=== PATIENT | female | born 1995 | race Two or more races ===

== ENCOUNTER 2019-01-29 08:40 | Observation (INO) | payer MEDICAID ==
[~2019-01-29] VITALS: Ht 157.5 cm; Wt 112.5 kg
== END 2019-01-29 10:55 | disposition home or self-care (01) | DRG 566 ==
LOC: LDRP 08:40
PROVIDERS: ADMIT Obstetrics & Gynecology; ATTEND Obstetrics & Gynecology
DX: O41.03X0 Oligohydramnios, third trimester, not applicable or unspecified (principal); Z3A.36 36 weeks gestation of pregnancy
CPT/HCPCS: 59025; 76805; 81002; G0378

== ENCOUNTER 2019-02-01 18:40 | Observation (INO) | payer MEDICAID | END 2019-02-01 20:00 | disposition home or self-care (01) | DRG 566 | LOC: LDRP 18:40 | PROVIDERS: ADMIT Specialist; ATTEND Specialist | DX: O41.03X0 Oligohydramnios, third trimester, not applicable or unspecified (principal); O24.113 Pre-existing type 2 diabetes mellitus, in pregnancy, third trimester; Z3A.36 36 weeks gestation of pregnancy | CPT/HCPCS: 59025; 76818; 81002; G0378 ==

== ENCOUNTER 2019-02-08 18:48 | Observation (INO) | payer MEDICAID ==
[2019-02-08 20:22] LABS: Urine Bacteria NONE SEEN /hpf (None Seen); Urine Blood 2+ /uL (Negative); Urine Mucus FEW (None Seen); Urine Specific Gravity 1.026 (1.001-1.035); Urine Sperm PRESENT /hpf (None Seen); Urine WBC 69 /hpf (0 - 5)
== END 2019-02-08 19:55 | disposition home or self-care (01) | DRG 566 ==
LOC: LDRP 18:48
PROVIDERS: ADMIT Obstetrics & Gynecology; ATTEND Obstetrics & Gynecology
DX: O00.01 Abdominal pregnancy with intrauterine pregnancy (principal); Z3A.37 37 weeks gestation of pregnancy
CPT/HCPCS: 59025; 76818; 81001; 81002; G0378

== ENCOUNTER 2019-02-15 18:54 | Observation (INO) | payer MEDICAID ==
[2019-02-15] MEDS ORDERED: PREN-129 OR (19:51)
== END 2019-02-15 21:03 | disposition home or self-care (01) | DRG 566 ==
LOC: LDRP 18:54
PROVIDERS: ADMIT Obstetrics & Gynecology; ATTEND Obstetrics & Gynecology
DX: O00.01 Abdominal pregnancy with intrauterine pregnancy (principal); O24.113 Pre-existing type 2 diabetes mellitus, in pregnancy, third trimester; O41.03X0 Oligohydramnios, third trimester, not applicable or unspecified; Z3A.38 38 weeks gestation of pregnancy
CPT/HCPCS: 59025; 76818; 81002; G0378

== ENCOUNTER 2019-02-16 09:00 | Observation (INO) | payer MEDICAID ==
[~2019-02-16 09:00] MED LIST: PREN-129 OR
[2019-02-16 10:42] LABS: Urine Bacteria FEW /hpf (None Seen); Urine Blood TRACE /uL (Negative); Urine Mucus FEW (None Seen); Urine WBC 26 /hpf (0 - 5)
[2019-02-16 11:04] LABS: Basophils # (auto) 0.1 uL; Basophils % (auto) 0.6 % (0.0-2.0); Eosinophils # (auto) 0.1 uL; Eosinophils % (auto) 1.5 % (0.0-7.0); Hematocrit 33.5 % (36.0-46.0); Hemoglobin 10.9 g/dL (12.2-16.2); Lymphocytes # (auto) 1.9 uL; Lymphocytes % (auto) 20.5 % (10.0-50.0); Mean Corpuscular Hemoglobin 28.9 pg (28.0-32.0); Mean Corpuscular Hgb Conc. 32.4 g/dL (32.0-36.0); Mean Corpuscular Volume 89.2 fL (80.0-100.0); Monocytes # (auto) 0.6 uL; Monocytes % (auto) 6.1 % (0.0-12.0); Neutrophils # (auto) 6.7 uL; Neutrophils % (auto) 71.3 % (37.0-80.0); Nucleated Red Blood Cells % 0.1 %; Platelet Count (auto) 170 10^3/uL (140-450); Red Blood Cells 3.76 10^6/uL (4.0-5.20); Red Cell Distribution Width 14.1 % (11.8-14.3); White Blood Cell 9.4 10^3/uL (4.4-10.8)
[2019-02-16 11:25] LABS: INR < 0.93 (0.9-1.15); Partial Thromboplastin Time 26.9 sec (23.64-32.05)
[2019-02-16 11:44] LABS: Albumin 2.5 g/dL (3.4-5.0)
[2019-02-16 11:47] LABS: BUN/Creatinine Ratio 14.3; Bilirubin, Total 0.2 mg/dL (0.2-1.0); Total Protein 6.8 g/dL (6.4-8.2)
== END 2019-02-16 12:08 | disposition home or self-care (01) | DRG 566 ==
LOC: LDRP 09:00
PROVIDERS: ADMIT Specialist; ATTEND Specialist
DX: O00.01 Abdominal pregnancy with intrauterine pregnancy (principal); O24.113 Pre-existing type 2 diabetes mellitus, in pregnancy, third trimester; O26.893 Other specified pregnancy related conditions, third trimester; N89.8 Other specified noninflammatory disorders of vagina; Z3A.38 38 weeks gestation of pregnancy
CPT/HCPCS: 36415; 59025; 76818; 80053; 81001; 81002; 84550; 85025; 85362; 85379; 85610; 85730; G0378

== ENCOUNTER 2019-02-16 23:35 | Observation (INO) | payer MEDICAID ==
[~2019-02-16] VITALS: Ht 157.5 cm; Wt 108.9 kg
== END 2019-02-17 00:27 | disposition home or self-care (01) | DRG 566 ==
LOC: LDRP 23:35
PROVIDERS: ADMIT Specialist; ATTEND Specialist
DX: O00.01 Abdominal pregnancy with intrauterine pregnancy (principal); O24.113 Pre-existing type 2 diabetes mellitus, in pregnancy, third trimester; O26.893 Other specified pregnancy related conditions, third trimester; N89.8 Other specified noninflammatory disorders of vagina; O26.853 Spotting complicating pregnancy, third trimester; Z3A.39 39 weeks gestation of pregnancy
CPT/HCPCS: 59025; 81002; G0378

== ENCOUNTER 2019-02-17 10:05 | Observation (INO) | payer MEDICAID ==
[2019-02-17] MEDS ORDERED: LACTATED RINGER'S 1,000 ML IV ONE (12:15)
== END 2019-02-17 13:26 | disposition home or self-care (01) | DRG 566 ==
LOC: LDRP 10:05
PROVIDERS: ADMIT Obstetrics & Gynecology; ATTEND Obstetrics & Gynecology
DX: O41.03X0 Oligohydramnios, third trimester, not applicable or unspecified (principal); Z3A.39 39 weeks gestation of pregnancy
CPT/HCPCS: 59025; 76818; 81002; G0378; 96361; 96366

== ENCOUNTER 2019-02-19 00:17 | Observation (INO) | payer MEDICAID | END 2019-02-19 03:00 | disposition home or self-care (01) | DRG 566 | LOC: LDRP 00:17 | PROVIDERS: ADMIT Obstetrics & Gynecology; ATTEND Obstetrics & Gynecology | DX: O00.01 Abdominal pregnancy with intrauterine pregnancy (principal); O26.893 Other specified pregnancy related conditions, third trimester; N89.8 Other specified noninflammatory disorders of vagina; O62.9 Abnormality of forces of labor, unspecified; Z3A.39 39 weeks gestation of pregnancy | CPT/HCPCS: 59025; 76818; 81002; G0378 ==

== ENCOUNTER 2022-09-03 11:21 | Observation (INO) | payer MEDICAID ==
[~2022-09-03] VITALS: Ht 160 cm; Wt 121.1 kg
[2022-09-03 12:09] LABS: Basophils # (auto) 0 10 ^3/uL (0-0.2); Basophils % (auto) 0.3 % (0.0-2.0); Eosinophils # (auto) 0 10 ^3/uL (0-0.8); Eosinophils % (auto) 0.6 % (0.0-7.0); Hematocrit 32.3 % (36.0-46.0); Hemoglobin 10.5 g/dL (12.2-16.2); Lymphocytes # (auto) 1.4 10 ^3/uL (0.4-5.4); Lymphocytes % (auto) 17.9 % (10.0-50.0); Mean Corpuscular Hgb Conc. 32.4 g/dL (32.0-36.0); Mean Corpuscular Volume 89.3 fL (80.0-100.0); Monocytes # (auto) 0.4 10 ^3/uL (0-1.3); Monocytes % (auto) 4.7 % (0.0-12.0); Neutrophils # (auto) 5.8 10 ^3/uL (1.6-8.6); Neutrophils % (auto) 76.5 % (37.0-80.0); Red Blood Cells 3.61 10^6/uL (4.0-5.20); Red Cell Distribution Width 13.5 % (11.8-14.3); White Blood Cell 7.6 10^3/uL (4.4-10.8)
[2022-09-03 12:28] LABS: INR 0.93 (0.9-1.15)
[2022-09-03] MEDS ORDERED: FERR-7 PO (12:45)
[2022-09-03 13:28] LABS: Potassium 3.6 mmol/L (3.5-5.1)
[2022-09-03 13:32] LABS: Albumin 2.5 g/dL (3.4-5.0); BUN/Creatinine Ratio 14.6; Calcium 8.9 mg/dL (8.5-10.1)
[2022-09-03 13:34] LABS: Bilirubin, Total 0.2 mg/dL (0.2-1.0); Total Protein 6.7 g/dL (6.4-8.2)
[2022-09-03 14:47] LABS: Urine Bacteria FEW /hpf (None Seen); Urine Blood Negative /uL (Negative); Urine Mucus FEW (None Seen); Urine Specific Gravity 1.025 (1.001-1.035); Urine WBC 1 /hpf (0 - 5)
[2022-09-04 18:25] LABS: Protein, Urine 22.7 mg/dL (0.0-11.9)
== END 2022-09-03 14:13 | disposition home or self-care (01) ==
LOC: LDRP 11:21 → UNDOADMOB 11:21 → LDRP 11:27 → UNDODISOB 14:13
PROVIDERS: ADMIT Obstetrics & Gynecology; ATTEND Obstetrics & Gynecology
DX: O62.9 Abnormality of forces of labor, unspecified (principal); Z3A.37 37 weeks gestation of pregnancy
CPT/HCPCS: 36415; 59025; 80053; 81001; 81002; 82570; 84156; 84550; 85025; 85362; 85379; 85610; 85730; 94760; G0378

== ENCOUNTER 2022-09-05 08:04 | Observation (INO) | payer MEDICAID ==
[~2022-09-05 08:04] MED LIST changes: +FERR-7 PO
[2022-09-05 09:41] LABS: Protein, Urine 19.5 mg/dL (0.0-11.9)
[2022-09-05 09:44] LABS: Protein, Urine 27.9 mg/dL (0.0-11.9)
[2022-09-05 10:11] LABS: 24 Hr. Total Protein, Urine 165.7 mg/24 Hr (<149.1)
== END 2022-09-05 11:34 | disposition home or self-care (01) ==
LOC: LDRP 08:04
PROVIDERS: ADMIT Obstetrics & Gynecology; ATTEND Obstetrics & Gynecology
DX: O13.3 Gestational [pregnancy-induced] hypertension without significant proteinuria, third trimester (principal); O26.893 Other specified pregnancy related conditions, third trimester; R51.9 Headache, unspecified; O62.9 Abnormality of forces of labor, unspecified; Z3A.38 38 weeks gestation of pregnancy
CPT/HCPCS: 59025; 82570; 84156; 94760; G0378

== ENCOUNTER 2022-09-09 07:48 | Observation (INO) | payer MEDICAID ==
[~2022-09-09] VITALS: Ht 160 cm; Wt 121.1 kg
== END 2022-09-09 11:12 | disposition home or self-care (01) ==
LOC: LDRP 09:17 → UNDOADMOB 09:17 → LDRP 09:41
PROVIDERS: ADMIT Obstetrics & Gynecology; ATTEND Obstetrics & Gynecology
DX: O13.3 Gestational [pregnancy-induced] hypertension without significant proteinuria, third trimester (principal); Z3A.38 38 weeks gestation of pregnancy
CPT/HCPCS: 59025; 76818; 81002; 94760; G0378

== ENCOUNTER 2025-08-01 08:56 | Emergency (ER) | payer MEDICAID ==
[~2025-08-01] VITALS: Ht 157.5 cm; Wt 123.5 kg
[~2025-08-01 08:56] MED LIST changes: +CEPH500T PO; +DOCU-94 PO; +HYDR-4902 PO; +IBUP-1456 PO
--- NOTE | 2025-08-01 09:40 | ED.PDOC ---
[facility] HPI Comments 30 year old female presents to the ED with a chief complaint of vaginal bleeding onset 12 days. Patient states she began her menstrual cycle 12 days ago, since then has been experiencing vaginal bleeding with cramping. Patient's menstrual cycle usually last about 7 days. She woke up this morning began experiencing nausea. Has not been following up with OBGYN. Denies fever, chills, vomiting, diarrhea, headache, weakness, dysuria, vaginal discharge. No other symptoms or modifying factors present at this time. Chief Complaint: Vaginal Bleed Time Seen by MD: 09:25 Reviewed Notes: Medications, Allergies Allergies: Coded Allergies: NO KNOWN ALLERGIES (Unverified , 09/16/22) Home Meds Active Scripts Ibuprofen (Ibuprofen) 800 Mg Tab, 800 MG PO TID PRN for 15 Days, #40 TAB Prov:ARIANA CANALES DO 09/15/22 Hydrocodone-Acetaminophen (Hydrocodone Bitartrate/AC 5-325 mg) 1 Tab Tab, 1 TAB PO Q6HPRN PRN for 5 Days, #20 TAB Prov:ARIANA CANALES 09/15/22 Docusate Sodium (Colace) 100 Mg Cap, 1 CAP PO BID, #60 CAP 2 Refills Prov:ARIANA CANALES 09/15/22 Cephalexin Monohydrate (Cephalexin) 500 Mg Tab, 1 TAB PO QID, #40 TAB Prov:ARIANA CANALES 09/15/22 Reported Medications Ferrous Sulfate (Iron) 325 Mg Tab, 325 MG PO TID, TAB 09/03/22 Vit W/ Ferrous Fumara () Tab, 1 OR, TAB 02/15/19 Information Source: Patient Mode of Arrival: Ambulatory Timing: Weeks Prehospital treatment: None Severity: Moderate Vaginal Discharge: None Vaginal Lesions: None Bleeding Quality: Bright Red Vaginal Mass: None Onset Of Mass/Bleeding: Menstrual Control: None Associated Signs and Symptoms: Vaginal Bleeding, Cramping Past Medical History PAST MEDICAL HISTORY: Denies Surgical History: Denies all surgeries BAR USEFUL OR BUSSER History: No Pertinent BAR USEFUL OR BUSSER History Family History Family History: No family hx of HTN Social History Smoker: Non-Smoker Alcohol: Denies ETOH Use Drugs: Denies Drug Use Lives In: Home Constitutional: denies: chills, diaphoresis, fatigue, fever, malaise, sweats, weakness, others EENTM: denies: blurred vision, double vision, ear bleeding, ear discharge, ear drainage, ear pain, ear ringing, eye pain, eye redness, hearing loss, mouth pain, mouth swelling, nasal discharge, nose bleeding, nose congestion, nose pain, photophobia, tearing, throat pain, throat swelling, voice changes, others Respiratory: denies: cough, hemoptysis, orthopnea, SOB at rest, shortness of breath, SOB with excertion, stridor, wheezing, others Cardiovascular: denies: chest pain, dizzy spells, diaphoresis, Dyspnea on exertion, edema, irregular heart beat, left arm pain, lightheadedness, palpitations, PND, syncope, others Gastrointestinal: denies: abdomen distended, abdominal pain, blood streaked bowels, constipated, diarrhea, dysphagia, difficulty swallowing, hematemesis, melena, nausea, poor appetite, poor fluid intake, rectal bleeding, rectal pain, vomiting, others Genitourinary: reports: abnormal vagina bleeding; denies: burning, dyspareunia, dysuria, flank pain, frequency, hematuria, incontinence, pain, , vagina discharge, urgency, others Neurological: denies: dizziness, fainting, headache, left sided numbness, left sided weakness, numbness, paresthesia, pre-existing deficit, right sided numbness, right sided weakness, seizure, speech problems, tingling, tremors, weakness, others Musculoskeletal: denies: back pain, gout, joint pain, joint swelling, muscle pain, muscle stiffness, neck pain, others Integumetry: denies: bruises, change in color, change in hair/nails, dryness, laceration, lesions, lumps, rash, wounds, others Allergic/Immunocompromised: denies: Difficulty Healing, Frequent Infections, Hives, Itching, others Hematologic/Lymphatic: denies: anemia, blood clots, easy bleeding, easy bruising, swollen glands, others Endocrine: denies: excessive hunger, excessive sweating, excessive thirst, excessive urination, flushing, intolerance to cold, intolerance to heat, unexplained weight gain, unexplained weight loss, others Psychiatric: denies: anxiety, bipolar disorder, depression, hopeless, panic disorder, schizophrenia, sleepless, suicidal, others All Other Systems: Reviewed and Negative Physical Exam General Appearance: Normal HEENT: Normal ENT Inspection, Pharynx Normal, TMs Normal Neck: Full Range of Motion, Non-Tender, Normal, Normal Inspection Respiratory: Chest Non-Tender, Lungs Clear, No Accessory Muscle Use, No Respiratory Distress, Normal Breath Sounds Cardiovascular: No Edema, No JVD, No Murmur, No Gallop, Normal Peripheral Pulses, Regular Rate/Rhythm Breast Exam: Deferred Gastrointestinal: No Organomegaly, Non Tender, No Pulsatile Mass, Normal Bowel Sounds, Soft Genitalia: Deferred Pelvic: Deferred Rectal: Deferred Extremities: No calf tenderness, Normal capillary refill, Normal inspection, Normal range of motion, Non-tender, No pedal edema Musculoskeletal : Apperance: Normal Neurologic: Alert, patrol agent II-XII nml as Tested, No Motor Deficits, Normal Affect, Normal Mood, No Sensory Deficits Cerebellar Function: Normal Reflexes: Normal Skin: Dry, Normal Color, Warm Lymphatic: No Adenopathy Was a procedure done? Was a procedure done?: No Differential Diagnosis (BAR USEFUL OR BUSSER) Vaginal Bleeding: Hormonal, Menorrhagia, Menstrual Bleeding, UTI X-Ray, Labs, Meds, VS Vital Signs Date Time Temp Pulse Resp B/P (MAP) Pulse Ox O2 Delivery O2 Flow Rate FiO2 08/01/25 11:34 98.0 74 17 123/71 (88) 98 98.0 08/01/25 10:30 70 14 98 Room Air* 0 21 08/01/25 08:57 98.7 68 18 141/88 98 98.7 Lab Test 08/01/25 10:30 08/01/25 09:27 Range/Units White Blood Count 6.8 4.4-10.8 10^3/uL Red Blood Count 4.34 4.0-5.20 10^6/uL Hemoglobin 12.0 L 12.2-16.2 g/dL Hematocrit 37.0 36.0-46.0 % Mean Corpuscular Volume 85.4 80.0-100.0 fL Mean Corpuscular Hemoglobin 27.6 L 28.0-32.0 pg Mean Corpuscular Hemoglobin Concent 32.3 32.0-36.0 g/dL Red Cell Distribution Width 14.7 H 11.8-14.3 % Platelet Count 278 140-450 10^3/uL Mean Platelet Volume 9.8 6.9-10.8 fL Neutrophils (%) (Auto) 61.7 37.0-80.0 % Lymphocytes (%) (Auto) 29.5 10.0-50.0 % Monocytes (%) (Auto) 5.1 0.0-12.0 % Eosinophils (%) (Auto) 2.8 0.0-7.0 % Basophils (%) (Auto) 0.9 0.0-2.0 % Neutrophils # (Auto) 4.2 1.6-8.6 10 ^3/uL Lymphocytes # (Auto) 2.0 0.4-5.4 10 ^3/uL Monocytes # (Auto) 0.3 0-1.3 10 ^3/uL Eosinophils # (Auto) 0.2 0-0.8 10 ^3/uL Basophils # (Auto) 0.1 0-0.2 10 ^3/uL Nucleated Red Blood Cells 0.1 % Sodium Level 140 136-145 mmol/L Potassium Level 3.9 3.5-5.1 mmol/L Chloride Level 105 98-107 mmol/L Carbon Dioxide Level 24 20-31 mmol/L Anion Gap 11 5-15 Blood Urea Nitrogen 7 L 9-23 mg/dL Creatinine 0.64 0.550-1.02 mg/dL Glomerular Filtration Rate Calc 123 >90 mL/min BUN/Creatinine Ratio 10.9 10.0-20.0 Serum Glucose 96 74-106 mg/dL Calcium Level 9.1 8.7-10.4 mg/dL Urine Color Dark yellow Yellow Urine Clarity Turbid H Clear Urine pH 6.0 5.0-9.0 Urine Specific Bradford 1.027 1.001-1.035 Urine Protein 1+ H Negative Urine Ketones Trace Negative Urine Blood 3+ H Negative /uL Urine Nitrite Negative Negative Urine Bilirubin Negative Negative Urine Urobilinogen Normal Negative mg/dL Urine Leukocyte Esterase 1+ Negative /uL Urine RBC 672 0 - 4 /hpf Urine Microscopic WBC 12 H 0-5 /HPF Urine Squamous Epithelial Cells Few <5 /hpf Urine Bacteria None seen None Seen /hpf Urine Mucus Few None Seen Urine Glucose Normal Normal mg/dL Urine Test Positive Negative Time of 1ST Reevaluation: 09:55 Reevaluation 1ST: Unchanged Patient Education/Counseling: Diagnosis, Treatment, Prognosis Family Education/Counseling: No Family Present Departure 1 Departure Time of Disposition: 12:22 (Patient with a very heavy period. We will prescribe patient was data and the patient follow up with the OB.) Impression: Primary Impression: Abnormal uterine bleeding Disposition: HOME / SELF CARE / HOMELESS Condition: Stable Referrals: ARIANA CANALES DO Additional Instructions: Your blood work is normal today. You were prescribed Lysteda This will help stop your bleeding. You were referred to OBGYN. Please call for an appointment as week. For pain you can take the followinam: Ibuprofen 400mg with food Noon: Acetaminophen 1000mg 4pm: Ibuprofen 400mg with food 8pm: Acetaminophen 1000mg If your symptoms worsen or you have any other concerns then please return to the ER. e-Prescriptions Tranexamic Acid (TRANEXAMIC ACID) 650 Mg Tab 1300 MG PO TID for 5 Days, #30 TAB Prov: GER GONZALEZ MD 08/01/25 Discharged With: Self Critical Care Note Critical Care Time?: No Stability Stability form required: No Heart Score Heart Score: Heart Score Response (Comments) Value History N/A 0 EKG N/A 0 Age N/A 0 Risk Factors N/A 0 Troponin N/A 0 Total 0 I personally scribed for GER GONZALEZ MD ([email or web address]) on 08/01/25 at 09:40. Electronically submitted by Lavonne Schreiber ([email or web address]). GER GONZALEZ MD Aug 01, 2025 09:40
[2025-08-01 10:30] VITALS: PULSE 70; RESP 14; O2SAT 98
[2025-08-01 10:48] LABS: Hematocrit 37.0 % (36.0-46.0); Hemoglobin 12.0 g/dL (12.2-16.2); Mean Corpuscular Hemoglobin 27.6 pg (28.0-32.0); Mean Corpuscular Volume 85.4 fL (80.0-100.0); Nucleated Red Blood Cells % 0.1 %
[2025-08-01 10:55] LABS: Anion Gap 11 (5-15); Carbon Dioxide 24 mmol/L (20-31); Chloride 105 mmol/L (98-107); Potassium 3.9 mmol/L (3.5-5.1); Sodium 140 mmol/L (136-145)
[2025-08-01 10:56] LABS: Calcium 9.1 mg/dL (8.7-10.4)
[2025-08-01 11:01] LABS: BUN/Creatinine Ratio 10.9 (10.0-20.0); Glucose 96 mg/dL (74-106)
[2025-08-01 11:03] LABS: Blood Urea Nitrogen 7 mg/dL (9-23)
[2025-08-01 11:50] LABS: Urine Protein, UAD 1+ (Negative)
[2025-08-01] MEDS ORDERED: TRAN650T5 PO (12:27)
--- NOTE | 2025-08-01 13:29 | DVH ---
EXAM: US OB ULTRASOUND COMP LESS 14WKS HISTORY: Vag bleed. TECHNIQUE: Multiple real-time grayscale transabdominal and transvaginal approach sonographic images of the pelvis obtained, including duplex Doppler color flow. COMPARISON: None available. FINDINGS: Gestational sac: Not seen Gestational sac location: Unknown. Yolk sac: Not seen. Embryo: Not seen. Anteverted uterus measures 10.4 x 4.6 x 5 cm. Endometrium measures 10.3 mm in thickness with small volume free liquid. Right ovary not seen (obscured by overlying bowel gas). Left ovary measures 2.6 x 1.8 x 2.4 cm, which demonstrates normal arterial and venous Doppler flow. Left ovary with an incidentally noted dominant physiologic follicle measuring up to 1.5 cm. IMPRESSION: Endometrium measures 10.3 mm in thickness with small volume free liquid. No sonographic evidence of an intrauterine . Differential diagnosis includes a very early , possible nonviable intrauterine , or unidentified ectopic . Recommend clinical follow-up and consider tracking of serial beta-hCG levels and follow-up pelvis ultrasound as clinically indicated and desired.
--- NOTE | 2025-08-01 14:52 | ED.PDOC ---
Departure 1 Departure Time of Disposition: 14:49 (The previous impression and plan was an error. This new one including discharge instructions this correct) Impression: Primary Impression: Threatened Additional Impression: Vagina bleeding Disposition: HOME / SELF CARE / HOMELESS Condition: Stable Referrals: ARIANA CANALES DO Additional Instructions: You have a threatened miscarriage. Your beta hcg level today was 937. Your ultrasound did not show an intrauterine however a this may be a very early . You should follow up with OBGYN within three days to recheck your blood work and ultrasound. If your symptoms worsen or you have any other concerns then please return to the ER. Discharged With: Self GER GONZALEZ MD Aug 01, 2025 14:52
[2025-08-01 15:05] VITALS: BP 120/68; PULSE 70; RESP 16; TEMP 98; O2SAT 99
== END 2025-08-01 15:06 | disposition home or self-care (01) ==
LOC: ER 08:56
DX: O20.0 Threatened abortion (principal); O20.8 Other hemorrhage in early pregnancy; Z79.899 Other long term (current) drug therapy; Z3A.01 Less than 8 weeks gestation of pregnancy
CPT/HCPCS: 36415; 76801; 76817; 80048; 81001; 81025; 84702; 85025